=== PATIENT | male | born 1960 | race Caucasian/White ===

== ENCOUNTER 2018-11-05 06:06 | Day surgery (SDC) | payer OTHER ==
[~2018-11-05] VITALS: Ht 167.6 cm; Wt 89.3 kg
[2018-11-05] VITALS (9 sets, daily range): BP systolic 108–144; BP diastolic 51–70; PULSE 84–96; RESP 11–43; Ht 167.6 cm; Wt 89.3 kg
[2018-11-05] MEDS ORDERED: BUPIVACAINE 0.75% (MPF) 10 ML INJ ONE (06:57)
[2018-11-05] MEDS ORDERED: MOXIFLOXACIN 0.5% 3 ML OPH ONE (06:57)
[2018-11-05] MEDS ORDERED: TETRACAINE 0.5% 4 ML OPH ONE (06:57)
[2018-11-05] MEDS ORDERED: LIDOCAINE 1% (MPF) 10 ML INJ ONE (06:57)
[2018-11-05] MEDS ORDERED: NA BICARBONATE 8.4% 50 ML SYG ONE (06:58)
[2018-11-05] MEDS ORDERED: CYCLOPENTOLATE 2% 2 ML OPH OPER SCH (07:00)
[2018-11-05] MEDS ORDERED: MOXIFLOXACIN 0.5% 3 ML OPH OPER ONE (07:00)
[2018-11-05] MEDS ORDERED: PHENYLephrine 10% 5 ML OPH OPER SCH (07:00)
[2018-11-05] MEDS ORDERED: NEPAFENAC 0.1% 3 ML OPH OPER SCH (07:00)
[2018-11-05] MEDS ORDERED: METF100010 PO (07:03)
[2018-11-05] MEDS ORDERED: GLIP10TA14 PO (07:04)
[2018-11-05] MEDS ORDERED: ASPI81TA52 PO (07:04)
[2018-11-05] MEDS ORDERED: ATOR10TA65 PO (07:04)
[2018-11-05] MEDS ORDERED: IBUP800T48 PO (07:05)
[2018-11-05] MEDS ORDERED: EPINEPHrine 1 MG INJ ONE (07:08)
--- NOTE | 2018-11-05 07:13 | HPN ---
Date/Time of Note Date/Time of Note DATE: 11/05/18 TIME: 07:13 Interval H&P Admission Note Pt. seen H&P reviewed: No system changes LUCA WHITE MD Nov 05, 2018 07:13
--- NOTE | 2018-11-05 07:14 | PREAC ---
Date/Time of Note Date/Time of Note DATE: 11/05/18 TIME: 07:10 Anesthesia Eval and Record Evaluation Time Pre-Procedure Interview DATE: 11/05/18 TIME: 07:10 Age 58 Sex male NPO: 8 hrs Preoperative diagnosis L eye cataract Planned procedure Phacoemulsification of cataract w/ Lens implant of posterior chamber IOL L eye Past Medical History Past Medical History: Includes (c spine stenosis) Cardio: HTN, Dyslipidemia Endo: Diabetes GI: GERD, Obesity Surgery & Anesthesia Issues No known issue Meds Anticoagulation: Yes (asa 81mg yesterday, ibuprofen last saturday - surgeon aware) Beta Gustavo within 24 hr: No Reason Beta Gustavo not given: Pt. not on B-Gustavo Reported Medications Ibuprofen* (Motrin*) 800 Mg Tab, 800 MG PO TID PRN for PAIN AND/OR INFLAMMATION, TAB 11/05/18 Aspirin (Low Dose Aspirin) 81 Mg Tablet.dr, 81 MG PO DAILY, #30 TAB 11/05/18 Atorvastatin Calcium (Atorvastatin Calcium) 10 Mg Tablet, 10 MG PO QHS, #30 TAB 11/05/18 Glipizide* (Glipizide*) 10 Mg Tablet, 10 MG PO AC BREAKFAST DINNER, TAB 11/05/18 Metformin Hcl* (Metformin Hcl*) 1,000 Mg Tablet, 1000 MG PO WITH BREAKFAST DINNE, #60 TAB 11/05/18 Current Medications Cyclopentolate HCl (Cyclogyl 2% Oph) 1 drop Q5 MIN X 3 OPER Last administered on 11/05/18at 06:56; Admin Dose 1 DROP; Start 11/05/18 at 07:00 Phenylephrine HCl (Ak-Dilate 10%) 1 drop Q5 MIN X3 OPER Last administered on 11/05/18at 06:56; Admin Dose 1 DROP; Start 11/05/18 at 07:00 Nepafenac ([place] Oph) 1 drop Q5 MIN X3 OPER Last administered on 11/05/18at 06:57; Admin Dose 1 DROP; Start 11/05/18 at 07:00 Meds reviewed: Yes Allergies Coded Allergies: No Known Allergy (Unverified , 11/05/18) Allergies Reviewed: Yes Labs/Studies Labs Reviewed: Reviewed by anesthesiologist test: N/A Studies: ECG (sr, rbbb) Pre-procedure Exam Airway: Adequate mouth opening, Adequate thyromental dist Mallampati: Mallampati II Teeth: Abnormal (upper partial dentures glued in place) Lung: Normal Heart: Normal ASA Physical Status ASA physical status: 2 Emergency: None Planned Anesthetic General/MAC: MAC Pre-operative Attestations Prior to commencing anesthesia and surgery, the patient was re-evaluated, there was verification of: *The patient's identity *The results of appropriate recent lab work and preoperative vital signs *The above evaluation not changing prior to induction *Anesthetic plan, risk benefits, alternative and complications discussed with patient/family; questions answered; patient/family understands, accepts and wishes to proceed. VONDA STEEL Nov 05, 2018 07:13
[2018-11-05] MEDS ORDERED: PROPOFOL 20 ML ONE (07:28)
[2018-11-05] MEDS ORDERED: LIDOCAINE 2% (SDV) 5 ML INJ ONE (07:28)
[2018-11-05] MEDS ORDERED: ALBUTEROL 0.083% (NEB) 2.5 MG/3 ML AMP HHN PRN (07:30)
[2018-11-05] MEDS ORDERED: ACETAMINOPHEN 325 MG TAB PO PRN (07:30)
[2018-11-05] MEDS ORDERED: hydrALAzine 20 MG INJ IV PRN (07:30)
[2018-11-05] MEDS ORDERED: DIPHENHYDRAMINE 50 MG INJ IV PRN (07:30)
[2018-11-05] MEDS ORDERED: LABETALOL HCL 20MG INJ IV PRN (07:30)
[2018-11-05] MEDS ORDERED: ONDANSETRON 4 MG INJ IV PRN (07:30)
[2018-11-05] MEDS ORDERED: OXYCODONE/ACETAMINOPHEN (5/325) TAB PO PRN (07:30)
[2018-11-05] MEDS ORDERED: ACETAMINOPHEN 500 MG TAB PO PRN (07:30)
[2018-11-05] MEDS ORDERED: FENTAnyl 50 MCG/ML VIAL IV PRN (07:30)
[2018-11-05] MEDS ORDERED: TIMOLOL 0.5% 5 ML OPH ONE (07:47)
[2018-11-05] MEDS ORDERED: FENTAnyl 50 MCG/ML VIAL ONE (08:01)
--- NOTE | 2018-11-05 08:43 | SIPON ---
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
--- NOTE | 2018-11-05 08:43 | PAC ---
Date/Time of Note Date/Time of Note DATE: 11/05/18 TIME: 08:42 Post-Anesthesia Notes Post-Anesthesia Note Last documented vital signs Vital Signs Date Temp Pulse Resp B/P (MAP) Pulse Ox O2 O2 Flow FiO2 Time Delivery Rate 11/05/18 99 86 18 119/59 95 ra 0835 (78) Activity: WNL Respiratory function: WNL Cardiovascular function: WNL Mental status: Baseline Pain reasonably controlled: Yes Hydration appropriate: Yes Nausea/Vomiting absent: Yes VONDA STEEL Nov 05, 2018 08:43
--- NOTE | 2018-11-05 09:09 | OPR ---
DATE OF OPERATION: 11/05/2018 PREOPERATIVE DIAGNOSIS: Senile nuclear sclerotic cataract left eye. POSTOPERATIVE DIAGNOSIS: Senile nuclear sclerotic cataract, left eye. OPERATION: Kelman phacoemulsification with implantation of intraocular lens left eye. 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 DESCRIPTION OF PROCEDURE: Following standard preparation and draping of the patient, a lid speculum was placed for immobilization of the lids. A SuperBlade incision was made at the corneal limbal junc tion for access into the anterior chamber. Approximately 0.03 mL of nonpreserved 1% Xylocaine was in stilled into the anterior chamber, and after approximately 5 to 10 seconds, this was replaced with Vi scoat. A clear corneal incision was then made using the 3.2 mm keratome, following which an anterior circular capsulorrhexis was made. The major portion of the lens cortex and nucleus were then disloc ated from the capsular bag using hydrodissection. The KPE tip was introduced into the eye and contro lling tumbling of the lens with a 2-handed technique, the major portion of the lens cortex and nucleu s was removed, maintaining the lens in the plane of the iris. The remaining cortical material was re moved via the irrigating aspirating instrument. The capsular bag and the anterior chamber were now r eformed using Viscoat. The proper power lens was then placed in the capsular bag. The viscoelastic was then removed from the eye and the eye reformed with balanced salt solution. One 10-0 Vicryl sutu re was then used to ensure closure of the corneal incision. The eye was reformed to normal pressure using balanced salt solution. The eye and cul-de-sacs were now simply flooded with 5% Betadine solut ion. One drop of Vigamox and 1 drop of Betagan solution were instilled into the eye. A light pressu re dressing was applied, and the patient was returned to the recovery room in satisfactory condition. Dictated By: LUCA PINA/AARON Conf#: [id number] DID#: [id number] CC: LUCA WHITE MD;*EndCC*
== END 2018-11-05 09:38 | disposition home or self-care (01) ==
LOC: SDS 06:06
PROVIDERS: ATTEND Ophthalmology
DX: H25.12 Age-related nuclear cataract, left eye (principal); I10 Essential (primary) hypertension; E11.8 Type 2 diabetes mellitus with unspecified complications; Z79.4 Long term (current) use of insulin; E78.2 Mixed hyperlipidemia; M48.02 Spinal stenosis, cervical region
CPT/HCPCS: 66984; 82962; J0171; J3010; V2632; Z7512; Z7610